=== PATIENT | female | born 1970 | race Caucasian/White ===

== ENCOUNTER 2020-10-11 17:08 | Emergency (ER) | payer SELFPAY ==
[~2020-10-11] VITALS: Ht 149.9 cm; Wt 77.0 kg
--- NOTE | 2020-10-11 17:37 | PHYS DOC ---
Past Medical History Past Medical History: Hypertension Additional Past Medical Histor: DVT'S, PE, HLD, DM, FH HEART DISEASE Past Surgical History: Cholecystectomy, Smoking Status: Current Every Day Smoker Alcohol Use: None General Adult EDM: Chief Complaint: CHEST PAIN HPI: HPI: 49-year-old female presented [facility] department today with chest pain that started today around 4:00. The pain is a pressure sensation which is nonr adiating throbbing aching pain. She denies vomiting associated with it. She has a history of DVT or PE and is currently not on anticoagulation therapy. She denies recent surgery or immobilization. She denies hemoptysis. She denies unilateral leg pain or swelling. She does have a history of hypertension hyperlipidemia and diabetes with a family history of heart disease and currently smokes. Review of systems negative for headache vomiting diaphoresis fevers chills. All other review of systems negative. Heart Score: C/O Chest Pain: Yes HEART Score for Chest Pain: HEART Score for Chest Pain Response (Comments) Value History Moderately Suspicious 1 ECG Normal 0 Age >45 - < 65 1 Risk Factors >3 Risk Factors or Hx CAD 2 Total 4 Risk Factors: Risk Factors: DM, Current or recent (<one month) smoker, HTN, HLP, family history of CAD, obesity. Risk Scores: Score 0 - 3: 2.5% MACE over next 6 weeks - Discharge Home Score 4 - 6: 20.3% MACE over next 6 weeks - Admit for Clinical Observation Score 7 - 10: 72.7% MACE over next 6 weeks - Early Invasive Strategies Allergies: Allergies: Allergies Coded Allergies Type Severity Reaction Last Updated Verified No Known Drug Allergies 10/11/20 No Physical Exam: PE: Constitutional: Well developed, well nourished, no acute distress, non-toxic appearance. [] HENT: Normocephalic, atraumatic, bilateral external ears normal, oropharynx moist, no oral exudates, nose normal. [] Eyes: PERRLA, EOMI, conjunctiva normal, no discharge. [] Neck: Normal range of motion, no tenderness, supple, no stridor. [] Cardiovascular:Heart rate regular rhythm, no murmur [] Lungs & Thorax: Bilateral breath sounds clear to auscultation [] Abdomen: Bowel sounds normal, soft, no tenderness, no masses, no pulsatile masses. [] Skin: Warm, dry, no erythema, no rash. [] Back: No tenderness, no CVA tenderness. [] Extremities: No tenderness, no cyanosis, no clubbing, ROM intact, no edema. [] Neurologic: Alert and oriented X 3, normal motor function, normal sensory function, no focal deficits noted. [] Psychologic: Affect normal, judgement normal, mood normal. [] Current Patient Data: Vital Signs: Vital Signs Date Time Temp Pulse Resp B/P (MAP) Pulse Ox O2 Delivery O2 Flow Rate FiO2 10/11/20 17:11 111 16 186/107 98 Room Air EKG: EKG: EKG shows sinus rhythm with a regular rate. ST segments congruent. Not suggestive of acute ischemia [] Radiology/Procedures: Radiology/Procedures: [] Course & Med Decision Making: Course & Med Decision Making Pertinent Labs and Imaging studies reviewed. (See chart for details) [] 41-year-old female presenting with chest pain. EKG unremarkable. Chest x-ray unremarkable. Blood work unremarkable. Negative troponin. CT angiogram negative for pulmonary embolism. Will admit for serial troponins and cardiology consultation. Heart score is 4. Dragon Disclaimer: Airpush Disclaimer: This electronic medical record was generated, in whole or in part, using a voice recognition dictation system. Departure Departure Impression: Primary Impression: Chest pain Disposition: ADMITTED INPATIENT Condition: STABLE Referrals: NO PCP (PCP) JUSTIN RAUSCH MD Oct 11, 2020 17:37
[2020-10-11 17:48] LABS: BASO # 0.1 x10^3/uL (0.0-0.2); BASO % 1 % (0-3); EOS # 0.3 x10^3/uL (0.0-0.7); EOS % 3 % (0-3); HEMATOCRIT 42.8 % (36.0-47.0); HEMOGLOBIN 14.6 g/dL (12.0-15.5); LYMPH # 3.8 x10^3/uL (1.0-4.8); LYMPH % 35 % (24-48); MEAN CORPUSCULAR HEMOGLOBIN 31 pg (25-35); MEAN CORPUSCULAR HGB CONC 34 g/dL (31-37); MEAN CORPUSCULAR VOLUME 90 fL (79-100); MONO # 0.9 x10^3/uL (0.0-1.1); MONO % 9 % (0-9); NEUT # 5.7 x10^3/uL (1.8-7.7); NEUT % 53 % (31-73); PLATELET COUNT 271 x10^3/uL (140-400); RED BLOOD COUNT 4.75 x10^6/uL (3.50-5.40); RED CELL DISTRIBUTION WIDTH 13.9 % (11.5-14.5); WHITE BLOOD COUNT 10.8 x10^3/uL (4.0-11.0)
[2020-10-11 17:55] LABS: CALCIUM 9.4 mg/dL (8.5-10.1); CREATININE 0.7 mg/dL (0.6-1.0); GFR 89.3; POTASSIUM 3.5 mmol/L (3.5-5.1)
[2020-10-11 18:00] VITALS: BP 140/78
[2020-10-11 18:01] LABS: ALBUMIN 3.8 g/dL (3.4-5.0); DIRECT BILIRUBIN 0.1 mg/dL (0.0-0.2); TOTAL BILIRUBIN 0.3 mg/dL (0.2-1.0); TOTAL PROTEIN 8.3 g/dL (6.4-8.2)
--- NOTE | 2020-10-11 18:10 | RAD ---
AP chest. HISTORY: Chest pain AP view was taken of the chest. Lungs are free of infiltrates. Heart is normal in size. There is no p leural effusion. IMPRESSION: 1. No acute infiltrates. Electronically signed by: Roshan Knight MD (10/11/2020 6:07 PM) [facility]
[2020-10-11] MEDS ORDERED: CONTRAST GIVEN. MC PRN (18:15)
[2020-10-11] MEDS ORDERED: IOHEXOL 350 MG/ML 100 ML VIAL. IV ONE (18:15)
--- NOTE | 2020-10-11 18:43 | RAD ---
CTA CHEST History: Chest pain Comparison: Chest x-ray 10/11/2020 Technique: CTA of the pulmonary arteries with intravenous contrast. Coronal and sagittal 3-D MIPS ref ormats were provided. Findings: Pulmonary arteries: Normal caliber. No pulmonary embolism. Aorta and great vessels: No aneurysm of the aortic arch or thoracic aorta is seen. Thyroid: No significant abnormalities. Mediastinum and rosa maria: No mediastinal masses or adenopathy is seen. Esophagus: The visualized esophagus is normal. Heart: The heart is normal in size. There is no pericardial effusion. Airways, Lungs, Pleura: Patent airways. No airspace consolidation. No pleural effusion or pneumothora x. Right lower lobe pulmonary nodule measures 5 mm (axial image 109). Upper abdomen: Status post cholecystectomy. Osseous structures and soft tissues: Within normal limits for age. Impression: 1. No pulmonary embolism, aortic dissection or aortic aneurysm. 2. No airspace consolidation. 3. Right lower lobe pulmonary nodule measuring 5 mm. In a low risk patient, no follow-up is recommen ded. In a high risk patient, optional CT in 12 months. ------ Exposure: One or more of the following individualized dose reduction techniques were utilized for thi s examination: 1. Automated exposure control 2. Adjustment of the mA and/or kV according to patient size 3. Use of iterative reconstruction technique. Electronically signed by: Pb Alcantara MD (10/11/2020 6:41 PM) [facility]
--- NOTE | 2020-10-12 06:54 | EKG ---
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
== END 2020-10-11 19:33 | disposition left against medical advice (07) ==
LOC: ER 17:08 → 2 NORTH 19:20 → UNDOADMOB 19:20 → ER 19:33
DX: R07.89 Other chest pain (principal); I11.9 Hypertensive heart disease without heart failure; E11.9 Type 2 diabetes mellitus without complications; E78.5 Hyperlipidemia, unspecified; F17.200 Nicotine dependence, unspecified, uncomplicated
CPT/HCPCS: 36415; 71045; 71275; 80048; 80076; 83690; 84484; 85025; 93005; 99285; Q9967